=== PATIENT | female | born 2000 | race Two or more races ===

== ENCOUNTER → 2023-11-20 | Outpatient (CLI) | payer OTHER, SELFPAY ==
--- NOTE | 2023-11-20 13:02 | ECHOD_ITS ---
Reason For Study: Palpitations, Family Hx Left Ventricle Normal LV size. Left ventricular systolic function is normal. The estimated ejection fraction is 65 %. Normal diastology for age. No regional wall motion abnormalities noted. Right Ventricle Normal RV size. Normal systolic function. Atria Normal left atrium. Normal right atrium. Mitral Valve Normal mitral valve. Tricuspid Valve Normal tricuspid valve. Mild tricuspid valve insufficiency. Pulmonary artery systolic pressure is 20 mmHg. Aortic Valve Normal aortic valve. Trisinus/trileaflet aortic valve. Pulmonic Valve Normal pulmonic valve. Great Vessels Normal aortic root. The pulmonary artery is normal size. Normal inferior vena cava. Pericardium/Pleural No pericardial effusion. MMode/2D Measurements & Calculations LVIDd: 4.0 cm IVSd: 0.70 cm Ao root diam: 2.4 cm LVIDs: 2.5 cm LVPWd: 0.75 cm RVDd: 2.4 cm FS: 37.8 % LAV(MOD-bp): 22.4 ml LVAd ap4: 21.3 cm2 SV(MOD-sp4): 33.9 ml LAV(MOD-bp) Indexed: 12.9 ml/m2 LVLd ap4: 7.5 cm LAV(MOD-sp2): 17.6 ml EDV(MOD-sp4): 51.6 ml LAV(MOD-sp4): 23.0 ml EDV(sp4-el): 51.3 ml LVAs ap4: 11.5 cm2 LVLs ap4: 6.5 cm ESV(MOD-sp4): 17.8 ml ESV(sp4-el): 17.4 ml EF(MOD-sp4): 65.6 % EF(sp4-el): 66.0 % SV(sp4-el): 33.9 ml LA dimension(2D): 3.1 cm LA A4 area: 11.4 cm2 RA A4 area: 6.8 cm2 TAPSE: 2.0 cm Time Measurements MV dec time: 0.22 sec Doppler Measurements & Calculations MV E max kevin: 122.1 cm/sec Lat Peak E' Kevin: 18.9 cm/sec Med Peak E' Kevin: 13.6 cm/sec MV A max kevin: 45.3 cm/sec E/E' lat: 6.5 E/E' med: 9.0 MV E/A: 2.7 Ao V2 max: 118.9 cm/sec LV V1 max: 105.1 cm/sec MV dec slope: 561.2 cm/sec2 Ao max P.7 mmHg LV V1 max P.4 mmHg Ao V2 mean: 84.7 cm/sec LV V1 mean P.5 mmHg Ao mean P.2 mmHg LV V1 mean: 74.8 cm/sec Ao V2 VTI: 28.1 cm LV V1 VTI: 24.2 cm AV (velocity ratio): 0.86 PA V2 max: 100.8 cm/sec TR max kevin: 201.3 cm/sec TR max P.2 mmHg ECHO/Echo Complete Interpretation Summary Normal LV size. Left ventricular systolic function is normal. The estimated ejection fraction is 65 %. Pulmonary artery systolic pressure is 20 mmHg. Structurally normal valves. Ordering Physician: YVONNE DANIELS Performed By: Melisa Chung, HIRA, RVT
== END | disposition home or self-care (01) ==
LOC: CVS 13:01
DX: R55 Syncope and collapse (principal)
CPT/HCPCS: 93306